=== PATIENT | female | born 1955 | race Caucasian/White ===

== ENCOUNTER → 2020-03-12 | Outpatient (CLI) | payer MEDICARE ==
[~2020-03-12] MED LIST: BENICAR20 MG PO; BENTYL10 MG PO; CYMBALTA60 MG PO; DEXILANT60 M1 PO; FENOFIBRATE160 MG PO; GLYBURIDE5 MG PO; JANUVIA100 MG PO; LAMICTAL200 MG PO; LANTUS100 U/ML SC; LEVOTHYROXIN0.112 MG PO; METFORMIN500 MG PO; METOPROLOL SR50 MG PO; SEROQUEL100 MG PO; SIMVASTATIN40 MG PO; VITAMIN D50000 I2 PO; WARFARIN SOD5 MG PO
[2020-03-12 15:36] LABS: ALBUMIN 3.1 gm/dl (3.1-4.5); BUN 22 mg/dl (7-24); CHLORIDE 102 mmol/L (98-107); CREATININE 1.01 mg/dL (0.55-1.02); POTASSIUM 3.7 mmol/L (3.5-5.1); SODIUM 138 mmol/L (136-145)
[2020-03-12 16:24] LABS: BILIRUBIN NEGATIVE (NEGATIVE); CLARITY CLEAR (CLEAR); COLOR YELLOW (YELLOW); GLUCOSE NEGATIVE (NEGATIVE); KETONE NEGATIVE (NEGATIVE); SPECIFIC GRAVITY 1.015 (1.005-1.030)
[2020-03-12 16:25] LABS: BLOOD 2+ (NEGATIVE); LEUKO ESTERASE 1+ (NEGATIVE); NITRITE NEGATIVE (NEGATIVE); PH 6.5 (5.0-9.0)
[2020-03-12 16:31] LABS: BACTERIA TRACE; EPITHELIAL CELLS 0-2
== END | disposition home or self-care (01) ==
LOC: LAB 14:15
PROVIDERS: Internal Medicine Nephrology
DX: E83.42 Hypomagnesemia (principal); E11.9 Type 2 diabetes mellitus without complications

== ENCOUNTER → 2020-03-17 | Outpatient (CLI) | payer MEDICARE | END | disposition home or self-care (01) | LOC: NM 03-14 10:00 | DX: E21.0 Primary hyperparathyroidism (principal) ==

== ENCOUNTER → 2020-05-13 | Outpatient (CLI) | payer MEDICARE, OTHER ==
[2020-05-13 16:01] LABS: ALBUMIN 3.1 gm/dl (3.1-4.5); BUN 16 mg/dl (7-24); CHLORIDE 102 mmol/L (98-107); CREATININE 1.04 mg/dL (0.55-1.02); POTASSIUM 4.3 mmol/L (3.5-5.1); SODIUM 137 mmol/L (136-145)
== END | disposition home or self-care (01) ==
LOC: LAB 15:07
PROVIDERS: Internal Medicine Nephrology
DX: E83.42 Hypomagnesemia (principal)

== ENCOUNTER → 2020-06-02 | Outpatient (CLI) | payer MEDICARE | END | disposition home or self-care (01) | LOC: LAB 15:06 | DX: E83.42 Hypomagnesemia (principal) ==

== ENCOUNTER → 2020-06-23 | Outpatient (CLI) | payer MEDICARE | END | disposition home or self-care (01) | LOC: LAB 14:43 | PROVIDERS: ATTEND Internal Medicine Nephrology | DX: E83.42 Hypomagnesemia (principal) ==

== ENCOUNTER → 2020-07-16 | Outpatient (CLI) | payer MEDICARE ==
[2020-07-16 16:20] LABS: ALBUMIN 3.3 gm/dl (3.1-4.5); BUN 24 mg/dl (7-24); CHLORIDE 103 mmol/L (98-107); CREATININE 1.02 mg/dL (0.55-1.02); SODIUM 134 mmol/L (136-145)
== END | disposition home or self-care (01) ==
LOC: LAB 14:59
PROVIDERS: ATTEND Internal Medicine Nephrology
DX: E83.42 Hypomagnesemia (principal)

== ENCOUNTER → 2020-08-01 | Outpatient (CLI) | payer MEDICARE | END | disposition home or self-care (01) | LOC: RAD 15:16 | PROVIDERS: ATTEND Nurse Practitioner Family | DX: R27.0 Ataxia, unspecified (principal); R06.00 Dyspnea, unspecified; M25.48 Effusion, other site; R09.02 Hypoxemia ==

== ENCOUNTER → 2020-08-07 | Outpatient (CLI) | payer MEDICARE ==
[2020-08-07 14:52] LABS: ALBUMIN 3.3 gm/dl (3.1-4.5); BUN 22 mg/dl (7-24); CHLORIDE 102 mmol/L (98-107); CREATININE 1.08 mg/dL (0.55-1.02); POTASSIUM 4.4 mmol/L (3.5-5.1); SODIUM 138 mmol/L (136-145)
== END | disposition home or self-care (01) ==
LOC: LAB 05:04
PROVIDERS: ATTEND Internal Medicine Nephrology
DX: E83.42 Hypomagnesemia (principal)

== ENCOUNTER → 2020-08-11 | Outpatient (CLI) | payer MEDICARE ==
[2020-08-11 16:13] LABS: ALBUMIN 3.2 gm/dl (3.1-4.5); CREATININE 1.27 mg/dL (0.55-1.02); POTASSIUM 4.1 mmol/L (3.5-5.1)
== END | disposition home or self-care (01) ==
LOC: LAB 00:59
PROVIDERS: ATTEND Internal Medicine Nephrology
DX: E83.42 Hypomagnesemia (principal)

== ENCOUNTER 2020-09-09 14:42 | Emergency (ER) | payer MEDICARE ==
[~2020-09-09] VITALS: Wt 108.0 kg
[2020-09-09 14:49] VITALS: BP 107/77
== END 2020-09-09 16:50 | disposition home or self-care (01) ==
LOC: ED 14:42
DX: S79.912A Unspecified injury of left hip, initial encounter (principal); E11.9 Type 2 diabetes mellitus without complications; I10 Essential (primary) hypertension; F31.9 Bipolar disorder, unspecified; F17.200 Nicotine dependence, unspecified, uncomplicated; Z88.8 Allergy status to other drugs, medicaments and biological substances; Z79.01 Long term (current) use of anticoagulants; Z79.84 Long term (current) use of oral hypoglycemic drugs; Z79.2 Long term (current) use of antibiotics; W19.XXXA Unspecified fall, initial encounter; Y93.89 Activity, other specified; Y92.89 Other specified places as the place of occurrence of the external cause; Y99.8 Other external cause status

== ENCOUNTER → 2020-09-09 | Outpatient (CLI) | payer MEDICARE | END | disposition home or self-care (01) | LOC: LAB 00:21 | PROVIDERS: ATTEND Internal Medicine Nephrology | DX: E83.42 Hypomagnesemia (principal); R73.03 Prediabetes ==

== ENCOUNTER → 2020-11-03 | Outpatient (CLI) | payer MEDICARE ==
[~2020-11-03] MED LIST changes: +ATIVAN0.5 MG PO; -BENTYL10 MG PO; +Coumadin10 MG PO; +DICYCLOMINE HCL10 MG PO; +DILTIAZEM CD240 MG PO; +GLUCOPHAGE500 M1 PO; +Ipratropium Brom3 ML NEB; +JANTOVEN10 MG PO; +JANTOVEN4 M1 PO; +LISINOPRIL5 MG PO; -METFORMIN500 MG PO; -METOPROLOL SR50 MG PO; +METOPROLOL SUC100 M2 PO; +OMEPRAZOLE40 MG PO; +OXYGEN NAS; -SIMVASTATIN40 MG PO; -VITAMIN D50000 I2 PO; +Vitamin D2 PO; +WARFARIN PO; +ZOCOR20 MG PO
== END | disposition home or self-care (01) ==
LOC: PICC 00:31
PROVIDERS: ATTEND Internal Medicine Nephrology
DX: Z45.2 Encounter for adjustment and management of vascular access device (principal); E11.9 Type 2 diabetes mellitus without complications; I10 Essential (primary) hypertension; E03.9 Hypothyroidism, unspecified; E78.00 Pure hypercholesterolemia, unspecified; F31.9 Bipolar disorder, unspecified; Z87.891 Personal history of nicotine dependence

== ENCOUNTER 2020-11-19 13:14 | Inpatient (IN) | payer MEDICARE ==
[~2020-11-19] VITALS: Ht 178 cm; Wt 105.9 kg
[~2020-11-19 13:14] MED LIST changes: -ATIVAN0.5 MG PO; -Coumadin10 MG PO; -DILTIAZEM CD240 MG PO; -Ipratropium Brom3 ML NEB; -JANTOVEN10 MG PO; -JANTOVEN4 M1 PO; -LISINOPRIL5 MG PO; -OMEPRAZOLE40 MG PO; -OXYGEN NAS; -WARFARIN PO
[2020-11-19 13:21] VITALS: BP 118/92
[2020-11-19 13:47] LABS: BASO % 0.7 % (0.0-1.0); EOS # 0.1 10*3/uL (0.0-0.4); EOS % 0.9 % (1.0-4.0); HEMATOCRIT 37.3 % (37.0-47.0); LYMPH # 1.2 10*3/uL (1.3-4.4); LYMPH % 20.8 % (27.0-41.0); MEAN CELL VOLUME 76.3 fl (81.0-99.0); MEAN CORPUSCULAR HGB 21.5 pg (27.0-31.0); MEAN CORPUSCULAR HGB CONC 28.2 g/dl (33.0-37.0); MONO # 0.3 10*3/uL (0.1-1.0); MONO % 5.9 % (3.0-9.0); NEUT % 71.5 % (47.0-73.0); PLATELET COUNT AUTOMATED 278 10*3/uL (130-400); RED BLOOD COUNT 4.89 10*6/uL (4.10-5.10); RED CELL DISTRI WIDTH 21.2 % (0-14.5); WHITE BLOOD COUNT 5.6 10*3/uL (4.8-10.8)
[2020-11-19 14:03] LABS: ALBUMIN 2.7 gm/dl (3.1-4.5); ALKALINE PHOSPHATASE 109 U/L (45-117); BUN 30 mg/dl (7-24); CHLORIDE 102 mmol/L (98-107); CREATININE 1.34 mg/dL (0.55-1.02); LIPASE 140 U/L (73-393); POTASSIUM 3.8 mmol/L (3.5-5.1); SGOT/AST 15 IU/L (3-35); SGPT/ALT 14 U/L (12-78); SODIUM 138 mmol/L (136-145); TOTAL PROTEIN 6.6 gm/dL (6.4-8.2)
[2020-11-19 14:04] LABS: INTERNATIONAL NORM RATIO 2.8 (2.0-3.5)
[2020-11-19 14:13] LABS: TROPONIN I < 0.015 ng/ml (<0.045)
[2020-11-19 16:00] VITALS: BP 128/69
[2020-11-19] MEDS ORDERED: WARFARIN PO (16:51)
[2020-11-19 20:00] VITALS: BP 156/99
[2020-11-19] MEDS ORDERED: LISINOPRIL5 MG PO (22:17)
[2020-11-19] MEDS ORDERED: JANTOVEN4 M1 PO (22:20)
[2020-11-19] MEDS ORDERED: JANTOVEN10 MG PO (22:22)
[2020-11-19] MEDS ORDERED: OMEPRAZOLE40 MG PO (22:27)
[2020-11-19] MEDS ORDERED: DILTIAZEM CD240 MG PO (22:52)
[2020-11-19] MEDS ORDERED: ATIVAN0.5 MG PO (23:10)
[2020-11-20] VITALS: BP 155/84
[2020-11-20 06:09] LABS: BASO # 0.1 10*3/uL (0.0-0.1); BASO % 0.9 % (0.0-1.0); EOS # 0.1 10*3/uL (0.0-0.4); EOS % 1.8 % (1.0-4.0); HEMATOCRIT 34.9 % (37.0-47.0); LYMPH # 1.3 10*3/uL (1.3-4.4); LYMPH % 22.9 % (27.0-41.0); MEAN CORPUSCULAR HGB 21.8 pg (27.0-31.0); MEAN CORPUSCULAR HGB CONC 28.7 g/dl (33.0-37.0); MEAN PLATELET VOLUME 10.2 fl (9.6-12.3); MONO # 0.4 10*3/uL (0.1-1.0); MONO % 7.2 % (3.0-9.0); NEUT # 3.7 10*3/uL (2.3-7.9); NUCLEATED RED BLOOD CELL 0.4 % (0.0-0.0); PLATELET COUNT AUTOMATED 236 10*3/uL (130-400); RED BLOOD COUNT 4.59 10*6/uL (4.10-5.10); RED CELL DISTRI WIDTH 21.1 % (0-14.5); RETICULOCYTE % 1.96 % (0.50-2.50); WHITE BLOOD COUNT 5.6 10*3/uL (4.8-10.8)
[2020-11-20 06:33] LABS: ALBUMIN 2.9 gm/dl (3.1-4.5); BUN 24 mg/dl (7-24); CHLORIDE 104 mmol/L (98-107); POTASSIUM 3.6 mmol/L (3.5-5.1); SODIUM 139 mmol/L (136-145)
[2020-11-20 06:46] LABS: ALKALINE PHOSPHATASE 106 U/L (45-117); CHOLESTEROL 78 mg/dL (<200); CREATININE 1.05 mg/dL (0.55-1.02); FREE T4 1.05 ng/dl (0.76-1.46); HDL CHOLESTEROL 36 mg/dl (40-60); IRON 19 ug/dL (50-170); LDL CHOLESTEROL 24 mg/dL (9-159); SGOT/AST 17 IU/L (3-35); SGPT/ALT 13 U/L (12-78); TOTAL IRON BINDING CAPACITY 421 ug/dl (250-450); TOTAL PROTEIN 6.5 gm/dL (6.4-8.2); TRIGLYCERIDES 89 mg/dl (<150); VLDL CHOLESTEROL 18 mg/dL (6-40)
[2020-11-20 07:00] LABS: INTERNATIONAL NORM RATIO 2.3 (2.0-3.5)
[2020-11-20 07:37] LABS: VITAMIN D, 25-HYDROXY 59.5 ng/mL (30-100)
[2020-11-20 07:38] LABS: FERRITIN 38.9 ng/mL (10.0-291.0)
[2020-11-20 08:00] VITALS: BP 144/78
[2020-11-20 12:00] VITALS: BP 136/72
[2020-11-20 16:00] VITALS: BP 119/73
[2020-11-20 20:00] VITALS: BP 148/96
[2020-11-21] VITALS: BP 148/90
[2020-11-21 06:10] LABS: BASO # 0.1 10*3/uL (0.0-0.1); BASO % 0.8 % (0.0-1.0); EOS # 0.1 10*3/uL (0.0-0.4); EOS % 1.9 % (1.0-4.0); HEMATOCRIT 36.6 % (37.0-47.0); LYMPH # 1.3 10*3/uL (1.3-4.4); MEAN CELL VOLUME 75.8 fl (81.0-99.0); MEAN CORPUSCULAR HGB 21.3 pg (27.0-31.0); MEAN CORPUSCULAR HGB CONC 28.1 g/dl (33.0-37.0); MEAN PLATELET VOLUME 10.3 fl (9.6-12.3); MONO # 0.4 10*3/uL (0.1-1.0); MONO % 6.9 % (3.0-9.0); NEUT # 4.4 10*3/uL (2.3-7.9); NEUT % 69.1 % (47.0-73.0); PLATELET COUNT AUTOMATED 246 10*3/uL (130-400); RED BLOOD COUNT 4.83 10*6/uL (4.10-5.10); RED CELL DISTRI WIDTH 21.3 % (0-14.5); WHITE BLOOD COUNT 6.4 10*3/uL (4.8-10.8)
[2020-11-21 06:21] LABS: BUN 21 mg/dl (7-24); CHLORIDE 105 mmol/L (98-107); CREATININE 0.98 mg/dL (0.55-1.02); POTASSIUM 4.2 mmol/L (3.5-5.1); SODIUM 141 mmol/L (136-145)
[2020-11-21 08:00] VITALS: BP 142/91
[2020-11-21 12:00] VITALS: BP 120/101
== END 2020-11-21 14:00 | disposition home or self-care (01) | DRG 682 ==
LOC: ED 13:14 → EDHOLD 15:12 → 4E 15:12
PROVIDERS: Emergency Medicine; Internal Medicine; Registered Nurse; ADMIT Internal Medicine; ATTEND Internal Medicine
DX: N17.0 Acute kidney failure with tubular necrosis (principal); E43 Unspecified severe protein-calorie malnutrition; D68.69 Other thrombophilia; I48.19 Other persistent atrial fibrillation; E87.2 Acidosis; F41.1 Generalized anxiety disorder; E83.42 Hypomagnesemia; E11.22 Type 2 diabetes mellitus with diabetic chronic kidney disease; N18.31 Chronic kidney disease, stage 3a; E11.65 Type 2 diabetes mellitus with hyperglycemia; E03.9 Hypothyroidism, unspecified; Z96.643 Presence of artificial hip joint, bilateral; D50.9 Iron deficiency anemia, unspecified; F17.210 Nicotine dependence, cigarettes, uncomplicated; E78.2 Mixed hyperlipidemia; K21.9 Gastro-esophageal reflux disease without esophagitis; E66.9 Obesity, unspecified; Z88.1 Allergy status to other antibiotic agents; Z90.710 Acquired absence of both cervix and uterus; Z80.1 Family history of malignant neoplasm of trachea, bronchus and lung; Z88.0 Allergy status to penicillin; Z88.8 Allergy status to other drugs, medicaments and biological substances; Z68.38 Body mass index [BMI] 38.0-38.9, adult

== ENCOUNTER 2020-12-12 09:49 | Inpatient (IN) | payer MEDICARE ==
[~2020-12-12] VITALS: Ht 177.8 cm; Wt 118.9 kg
[2020-12-12] VITALS (7 sets, daily range): BP systolic 89–133; BP diastolic 54–89
[~2020-12-12 09:49] MED LIST changes: +ATIVAN0.5 MG PO; +DILTIAZEM CD240 MG PO; +JANTOVEN10 MG PO; +JANTOVEN4 M1 PO; +LISINOPRIL5 MG PO; +OMEPRAZOLE40 MG PO; +WARFARIN PO
[2020-12-12 10:44] LABS: BASO % 0.7 % (0.0-1.0); EOS # 0.1 10*3/uL (0.0-0.4); EOS % 0.9 % (1.0-4.0); HEMATOCRIT 34.4 % (37.0-47.0); LYMPH # 0.7 10*3/uL (1.3-4.4); LYMPH % 12.2 % (27.0-41.0); MEAN CELL VOLUME 77.5 fl (81.0-99.0); MEAN CORPUSCULAR HGB 21.6 pg (27.0-31.0); MEAN CORPUSCULAR HGB CONC 27.9 g/dl (33.0-37.0); MEAN PLATELET VOLUME 10.1 fl (9.6-12.3); MONO # 0.4 10*3/uL (0.1-1.0); NEUT # 4.4 10*3/uL (2.3-7.9); NEUT % 78.7 % (47.0-73.0); NUCLEATED RED BLOOD CELL 0.7 % (0.0-0.0); PLATELET COUNT AUTOMATED 217 10*3/uL (130-400); RED BLOOD COUNT 4.44 10*6/uL (4.10-5.10); RED CELL DISTRI WIDTH 22.1 % (0-14.5); WHITE BLOOD COUNT 5.6 10*3/uL (4.8-10.8)
[2020-12-12 10:56] LABS: ACT PARTIAL THROMBO TIME 33.3 SECONDS (20.0-32.1); INTERNATIONAL NORM RATIO 3.8 (2.0-3.5)
[2020-12-12 11:02] LABS: BUN 32 mg/dl (7-24); CHLORIDE 107 mmol/L (98-107); CREATININE 1.58 mg/dL (0.55-1.02); POTASSIUM 4.9 mmol/L (3.5-5.1); SODIUM 141 mmol/L (136-145)
[2020-12-12 11:06] LABS: TROPONIN I < 0.015 ng/ml (<0.045)
[2020-12-12 12:04] LABS: ABG BASE EXCESS -3.8 mmol/L (-2.0-2.0); ARTERIAL BLOOD GAS PH 7.311 (7.35-7.45); ARTERIAL BLOOD GAS PO2 67.9 (80-90)
[2020-12-12 14:47] LABS: ALBUMIN 2.8 gm/dl (3.1-4.5); BILIRUBIN, DIRECT 0.5 mg/dL (0.0-0.2); TOTAL PROTEIN 6.5 gm/dL (6.4-8.2)
[2020-12-13] VITALS: BP 137/82
[2020-12-13 00:21] LABS: BILIRUBIN Negative (Negative); BLOOD Negative (Negative); CLARITY Turbid (Clear); COLOR Dark Yellow (Yellow); GLUCOSE Negative (Negative); KETONE Trace (Negative); LEUKO ESTERASE Trace (Negative); NITRITE Negative (Negative); SPECIFIC GRAVITY 1.025 (1.001-1.030)
[2020-12-13 00:30] LABS: BACTERIA 2+
[2020-12-13 06:15] LABS: BASO # 0.1 10*3/uL (0.0-0.1); BASO % 0.9 % (0.0-1.0); EOS # 0.2 10*3/uL (0.0-0.4); EOS % 2.5 % (1.0-4.0); HEMATOCRIT 34.4 % (37.0-47.0); LYMPH # 1.2 10*3/uL (1.3-4.4); LYMPH % 18.7 % (27.0-41.0); MEAN CELL VOLUME 76.6 fl (81.0-99.0); MEAN CORPUSCULAR HGB 21.4 pg (27.0-31.0); MEAN CORPUSCULAR HGB CONC 27.9 g/dl (33.0-37.0); MEAN PLATELET VOLUME 10.8 fl (9.6-12.3); MONO # 0.5 10*3/uL (0.1-1.0); MONO % 7.5 % (3.0-9.0); NEUT # 4.6 10*3/uL (2.3-7.9); NEUT % 69.9 % (47.0-73.0); NUCLEATED RED BLOOD CELL 0.5 % (0.0-0.0); PLATELET COUNT AUTOMATED 243 10*3/uL (130-400); RED BLOOD COUNT 4.49 10*6/uL (4.10-5.10); RED CELL DISTRI WIDTH 21.7 % (0-14.5); WHITE BLOOD COUNT 6.5 10*3/uL (4.8-10.8)
[2020-12-13 06:22] LABS: ALBUMIN 2.9 gm/dl (3.1-4.5); CREATININE 1.21 mg/dL (0.55-1.02); POTASSIUM 4.4 mmol/L (3.5-5.1); TOTAL PROTEIN 6.6 gm/dL (6.4-8.2)
[2020-12-13 08:00] VITALS: BP 148/87
[2020-12-13 12:00] VITALS: BP 133/51
[2020-12-13 16:00] VITALS: BP 133/95
[2020-12-13 20:00] VITALS: BP 150/101
[2020-12-14] VITALS: BP 140/90
[2020-12-14 06:02] LABS: ALBUMIN 2.7 gm/dl (3.1-4.5); BUN 26 mg/dl (7-24); CHLORIDE 105 mmol/L (98-107); CREATININE 1.01 mg/dL (0.55-1.02); POTASSIUM 4.2 mmol/L (3.5-5.1); SODIUM 139 mmol/L (136-145)
[2020-12-14 06:08] LABS: INTERNATIONAL NORM RATIO 2.3 (2.0-3.5)
[2020-12-14 08:00] VITALS: BP 152/90
[2020-12-14 08:02] LABS: ABG BASE EXCESS -1.2 mmol/L (-2.0-2.0); ARTERIAL BLOOD GAS PH 7.332 (7.35-7.45); ARTERIAL BLOOD GAS PO2 73.1 (80-90)
[2020-12-14 12:00] VITALS: BP 139/86
[2020-12-14 16:01] VITALS: BP 150/97
[2020-12-14 19:14] LABS: ABG BASE EXCESS 6.1 mmol/L (-2.0-2.0); ARTERIAL BLOOD GAS PH 7.402 (7.35-7.45); ARTERIAL BLOOD GAS PO2 75.4 (80-90)
[2020-12-14 20:00] VITALS: BP 121/81
[2020-12-15 06:26] LABS: BUN 23 mg/dl (7-24); CHLORIDE 104 mmol/L (98-107); CREATININE 0.91 mg/dL (0.55-1.02); SODIUM 139 mmol/L (136-145)
[2020-12-15 08:00] VITALS: BP 138/77
[2020-12-15 12:00] VITALS: BP 114/61
[2020-12-15 15:55] VITALS: BP 156/87
[2020-12-15 20:00] VITALS: BP 147/80
[2020-12-16] VITALS: BP 124/77
[2020-12-16 08:00] VITALS: BP 158/98
[2020-12-16 12:00] VITALS: BP 160/89
[2020-12-16] MEDS ORDERED: ATIVAN0.5 MG PO (13:10)
[2020-12-16] MEDS ORDERED: JANTOVEN4 M1 PO (13:10)
[2020-12-16] MEDS ORDERED: Ipratropium Brom3 ML NEB (13:10)
[2020-12-16] MEDS ORDERED: Coumadin10 MG PO (13:10)
[2020-12-16] MEDS ORDERED: OXYGEN NAS (14:06)
== END 2020-12-16 16:08 | DRG 682 ==
LOC: ED 09:49 → EDHOLD 12:44 → 4E 12:44
PROVIDERS: Emergency Medicine; Internal Medicine; Internal Medicine Critical Care Medicine; ADMIT Emergency Medicine; ATTEND Emergency Medicine
PROC: 5A0935A Assistance with Respiratory Ventilation, Less than 24 Consecutive Hours, High Flow/Velocity Cannula (ICD-10-PCS; principal; 2020-12-15)
DX: N17.0 Acute kidney failure with tubular necrosis (principal); J96.01 Acute respiratory failure with hypoxia; F33.9 Major depressive disorder, recurrent, unspecified; E11.65 Type 2 diabetes mellitus with hyperglycemia; E03.9 Hypothyroidism, unspecified; N18.31 Chronic kidney disease, stage 3a; D50.9 Iron deficiency anemia, unspecified; K21.9 Gastro-esophageal reflux disease without esophagitis; E83.42 Hypomagnesemia; F41.1 Generalized anxiety disorder; E66.9 Obesity, unspecified; Z96.643 Presence of artificial hip joint, bilateral; Z20.822 Contact with and (suspected) exposure to COVID-19; E11.22 Type 2 diabetes mellitus with diabetic chronic kidney disease; I48.0 Paroxysmal atrial fibrillation; E78.2 Mixed hyperlipidemia; I95.9 Hypotension, unspecified; E86.9 Volume depletion, unspecified; Z68.37 Body mass index [BMI] 37.0-37.9, adult; Z88.1 Allergy status to other antibiotic agents; Z88.0 Allergy status to penicillin; Z88.8 Allergy status to other drugs, medicaments and biological substances; Z90.710 Acquired absence of both cervix and uterus; Z80.1 Family history of malignant neoplasm of trachea, bronchus and lung

== ENCOUNTER → 2021-02-25 | Outpatient (CLI) | payer MEDICARE ==
[~2021-02-25] MED LIST changes: +AMILORIDE5 MG PO; +Coumadin10 MG PO; +GLUCOPHAGE1000 MG PO; +GOOD SENSE ACID20 MG PO; +Ipratropium Brom3 ML NEB; +K-TAB20 MEQ PO; +OXYGEN NAS; +VITAMIN C500 M8 PO; +VITAMIN D3250 MC1 PO
[2021-02-25 12:59] LABS: BASO # 0.1 10*3/uL (0.0-0.1); BASO % 0.5 % (0.0-1.0); EOS # 0.2 10*3/uL (0.0-0.4); EOS % 1.5 % (1.0-4.0); HEMATOCRIT 38.5 % (37.0-47.0); LYMPH # 1.2 10*3/uL (1.3-4.4); LYMPH % 10.9 % (27.0-41.0); MEAN CELL VOLUME 76.7 fl (81.0-99.0); MEAN CORPUSCULAR HGB 21.5 pg (27.0-31.0); MEAN CORPUSCULAR HGB CONC 28.1 g/dl (33.0-37.0); MEAN PLATELET VOLUME 9.3 fl (9.6-12.3); MONO # 0.7 10*3/uL (0.1-1.0); MONO % 6.4 % (3.0-9.0); NEUT # 8.5 10*3/uL (2.3-7.9); NEUT % 80.3 % (47.0-73.0); PLATELET COUNT AUTOMATED 273 10*3/uL (130-400); RED BLOOD COUNT 5.02 10*6/uL (4.10-5.10); RED CELL DISTRI WIDTH 20.8 % (0-14.5); WHITE BLOOD COUNT 10.6 10*3/uL (4.8-10.8)
[2021-02-25 13:13] LABS: BUN 25 mg/dl (7-24); CHLORIDE 105 mmol/L (98-107); CREATININE 1.06 mg/dL (0.55-1.02); CREATININE 1.09 mg/dL (0.55-1.02); POTASSIUM 4.7 mmol/L (3.5-5.1); SODIUM 136 mmol/L (136-145)
[2021-02-25 13:18] LABS: IRON 17 ug/dL (50-170)
[2021-02-25 13:26] LABS: TOTAL IRON BINDING CAPACITY 489 ug/dl (250-450)
[2021-03-03 00:06] LABS: METANEPHRINE, PLASMA 31.5 pg/mL (0.0-88.0); NORMETANEPHRINE, PLASMA 596.4 pg/mL (0.0-191.8)
== END | disposition home or self-care (01) ==
LOC: LAB 00:23
PROVIDERS: Radiology Diagnostic Radiology; ATTEND Internal Medicine Nephrology
DX: K31.89 Other diseases of stomach and duodenum (principal); K90.9 Intestinal malabsorption, unspecified; R19.7 Diarrhea, unspecified; D72.820 Lymphocytosis (symptomatic); R63.4 Abnormal weight loss; I70.0 Atherosclerosis of aorta; Z96.643 Presence of artificial hip joint, bilateral

== ENCOUNTER 2021-03-16 11:13 | Emergency (ER) | payer MEDICARE ==
[~2021-03-16] VITALS: Wt 97.1 kg
[2021-03-16 11:48] LABS: BILIRUBIN Negative (Negative); BLOOD Negative (Negative); CLARITY Clear (Clear); COLOR Yellow (Yellow); GLUCOSE Negative (Negative); KETONE Negative (Negative); LEUKO ESTERASE Negative (Negative); NITRITE Negative (Negative); PH 5.5 (4.5-8.0); UROBILINOGEN 0.2 E.U./dl (0.0-1.0)
[2021-03-16 11:58] LABS: BACTERIA TRACE; HYALINE CAST 0-2; RBC 0-2 rbc/hpf (0-2); WBC 0-2 wbc/hpf (0-5)
[2021-03-16 12:05] LABS: HEMATOCRIT 44.1 % (37.0-47.0); MEAN CELL VOLUME 80.2 fl (81.0-99.0); MEAN CORPUSCULAR HGB 22.4 pg (27.0-31.0); MEAN CORPUSCULAR HGB CONC 27.9 g/dl (33.0-37.0); NUCLEATED RED BLOOD CELL 0.4 % (0.0-0.0); PLATELET COUNT AUTOMATED 259 10*3/uL (130-400); RED CELL DISTRI WIDTH 24.5 % (0-14.5); WHITE BLOOD COUNT 8.3 10*3/uL (4.8-10.8)
[2021-03-16 12:30] LABS: TOTAL CELLS COUNTED 100 #CELLS
[2021-03-16 12:31] LABS: MICROCYTOSIS SLIGHT; PLATELET SUFFICIENCY NORMAL (NORMAL); POLYCHROMASIA SLIGHT
[2021-03-16 12:42] LABS: ALBUMIN 2.9 gm/dl (3.1-4.5); ALKALINE PHOSPHATASE 176 U/L (45-117); BUN 21 mg/dl (7-24); CHLORIDE 106 mmol/L (98-107); CREATININE 1.15 mg/dL (0.55-1.02); POTASSIUM 4.8 mmol/L (3.5-5.1); SGOT/AST 15 IU/L (3-35); SGPT/ALT 15 U/L (12-78); SODIUM 133 mmol/L (136-145); TOTAL PROTEIN 7.2 gm/dL (6.4-8.2); TROPONIN I < 0.015 ng/ml (<0.045)
[2021-03-16 16:30] VITALS: BP 98/64
== END 2021-03-16 16:56 | disposition left against medical advice (07) ==
LOC: ED 11:13
PROVIDERS: Physician Assistant
DX: I48.20 Chronic atrial fibrillation, unspecified (principal); R09.02 Hypoxemia; I10 Essential (primary) hypertension; E11.9 Type 2 diabetes mellitus without complications; E03.9 Hypothyroidism, unspecified; I48.91 Unspecified atrial fibrillation; Z88.0 Allergy status to penicillin; Z88.8 Allergy status to other drugs, medicaments and biological substances; Z79.899 Other long term (current) drug therapy; Z90.711 Acquired absence of uterus with remaining cervical stump; Z98.890 Other specified postprocedural states; Z96.643 Presence of artificial hip joint, bilateral

== ENCOUNTER → 2021-05-22 | Outpatient (CLI) | payer MEDICARE ==
[2021-05-22 12:59] VITALS: BP 127/81
== END | disposition home or self-care (01) ==
LOC: PHLEB 00:30
PROVIDERS: ATTEND Internal Medicine Hematology & Oncology
DX: D75.1 Secondary polycythemia (principal); E83.42 Hypomagnesemia; E85.9 Amyloidosis, unspecified

== ENCOUNTER → 2021-07-21 | Outpatient (CLI) | payer MEDICARE ==
[2021-07-21 11:38] VITALS: BP 109/68
[2021-07-21 12:10] VITALS: BP 106/58
== END | disposition home or self-care (01) ==
LOC: PHLEB 00:38
PROVIDERS: ATTEND Internal Medicine Hematology & Oncology
DX: E83.42 Hypomagnesemia (principal); E85.9 Amyloidosis, unspecified; D75.1 Secondary polycythemia

== ENCOUNTER → 2021-08-19 | Outpatient (CLI) | payer MEDICARE ==
[2021-08-19 11:27] VITALS: BP 143/84
[2021-08-19 11:29] VITALS: BP 129/71
== END | disposition home or self-care (01) ==
LOC: PHLEB 00:33
PROVIDERS: ATTEND Internal Medicine Hematology & Oncology
DX: D75.1 Secondary polycythemia (principal); E83.42 Hypomagnesemia; E85.9 Amyloidosis, unspecified

== ENCOUNTER → 2021-08-26 | Outpatient (CLI) | payer MEDICARE ==
[2021-08-26 15:16] LABS: PTH INTACT 128.4 pg/mL (18.5-88.0); VITAMIN D, 25-HYDROXY 35.4 ng/mL (30-100)
[2021-08-27 08:07] LABS: TOTAL PROTEIN, SERUM 7.2 g/dL (6.0-8.5)
[2021-08-27 14:08] LABS: ALBUMIN 3.6 g/dL (2.9-4.4); ALPHA-1-GLOBULIN 0.2 g/dL (0.0-0.4); ALPHA-2-GLOBULIN 0.8 g/dL (0.4-1.0); BETA GLOBULIN 1.2 g/dL (0.7-1.3); FREE KAPPA LIGHT CHAINS 40.8 mg/L (3.3-19.4); FREE LAMBDA LIGHT CHAINS 26.2 mg/L (5.7-26.3); GAMMA GLOBULIN 1.3 g/dL (0.4-1.8); GLOBULIN, TOTAL 3.6 g/dL (2.2-3.9); KAPPA/LAMBDA RATIO 1.56 (0.26-1.65); M-SPIKE Not Observed g/dL (Not Observed)
[2021-08-28 16:08] LABS: BETA-2 MICROGLOBULIN 2.7 mg/L (0.6-2.4)
[2021-09-01 16:08] LABS: PARATHYROID-REL PEPTIDE <2.0 pmol/L (.)
== END | disposition home or self-care (01) ==
LOC: LAB 00:20
PROVIDERS: ATTEND Internal Medicine Nephrology
DX: E83.42 Hypomagnesemia (principal); R63.4 Abnormal weight loss; E83.52 Hypercalcemia; Z91.89 Other specified personal risk factors, not elsewhere classified

== ENCOUNTER → 2021-10-23 | Outpatient (CLI) | payer MEDICARE ==
[2021-10-23 10:35] VITALS: BP 125/81
[2021-10-23 11:21] VITALS: BP 148/97
== END | disposition home or self-care (01) ==
LOC: PHLEB 02:13
PROVIDERS: ATTEND Internal Medicine Hematology & Oncology
DX: R60.0 Localized edema (principal); D75.1 Secondary polycythemia; E83.42 Hypomagnesemia; E85.9 Amyloidosis, unspecified; M71.21 Synovial cyst of popliteal space [Baker], right knee

== ENCOUNTER → 2021-11-25 | Outpatient (CLI) | payer MEDICARE ==
[2021-11-25 10:10] VITALS: BP 125/67
[2021-11-25 10:42] VITALS: BP 117/59
== END | disposition home or self-care (01) ==
LOC: PHLEB 00:17
PROVIDERS: ATTEND Internal Medicine Hematology & Oncology
DX: D75.1 Secondary polycythemia (principal); E83.42 Hypomagnesemia; E85.9 Amyloidosis, unspecified

== ENCOUNTER → 2021-12-18 | Outpatient (CLI) | payer MEDICARE ==
[2021-12-18 10:45] VITALS: BP 97/59
[2021-12-18 11:05] VITALS: BP 98/62
== END | disposition home or self-care (01) ==
LOC: PHLEB 00:25
PROVIDERS: ATTEND Internal Medicine Hematology & Oncology
DX: D75.1 Secondary polycythemia (principal); E83.42 Hypomagnesemia; E85.9 Amyloidosis, unspecified

== ENCOUNTER → 2022-01-20 | Outpatient (CLI) | payer MEDICARE ==
[2022-01-20 10:40] VITALS: BP 117/75
[2022-01-20 11:03] VITALS: BP 116/66
== END | disposition home or self-care (01) ==
LOC: PHLEB 02:02 → IV THERAPY 10:30 → PHLEB 10:30 → EDSTATUS 10:30
PROVIDERS: ATTEND Internal Medicine Hematology & Oncology
DX: D75.1 Secondary polycythemia (principal); E83.42 Hypomagnesemia; E85.9 Amyloidosis, unspecified

== ENCOUNTER → 2022-02-11 | Outpatient (CLI) | payer MEDICARE ==
[2022-02-11 10:25] VITALS: BP 124/63
[2022-02-11 10:50] VITALS: BP 121/80
== END | disposition home or self-care (01) ==
LOC: PHLEB 00:10
PROVIDERS: ATTEND Internal Medicine Hematology & Oncology
DX: D75.1 Secondary polycythemia (principal); E83.42 Hypomagnesemia; E85.9 Amyloidosis, unspecified

== ENCOUNTER → 2022-02-16 | Outpatient (CLI) | payer MEDICARE | END | disposition home or self-care (01) | LOC: US 16:00 | PROVIDERS: ATTEND Nurse Practitioner Family | DX: L53.9 Erythematous condition, unspecified (principal); R60.0 Localized edema ==

== ENCOUNTER → 2022-03-22 | Outpatient (CLI) | payer MEDICARE ==
[2022-03-22 10:35] VITALS: BP 124/70
[2022-03-22 10:50] VITALS: BP 104/64
== END | disposition home or self-care (01) ==
LOC: PHLEB 04:27
PROVIDERS: ATTEND Internal Medicine Hematology & Oncology
DX: D75.1 Secondary polycythemia (principal); E83.42 Hypomagnesemia; E85.9 Amyloidosis, unspecified

== ENCOUNTER → 2022-04-21 | Outpatient (CLI) | payer MEDICARE ==
[2022-04-21 10:38] VITALS: BP 104/71
== END | disposition home or self-care (01) ==
LOC: PHLEB 00:36
PROVIDERS: ATTEND Internal Medicine Hematology & Oncology
DX: D75.1 Secondary polycythemia (principal); E83.42 Hypomagnesemia; E85.9 Amyloidosis, unspecified

== ENCOUNTER → 2022-05-19 | Outpatient (CLI) | payer MEDICARE ==
[2022-05-19 10:00] VITALS: BP 136/82
[2022-05-19 10:20] VITALS: BP 133/83
== END | disposition home or self-care (01) ==
LOC: PHLEB 00:28
PROVIDERS: ATTEND Internal Medicine Hematology & Oncology
DX: D75.1 Secondary polycythemia (principal); E83.42 Hypomagnesemia; E85.9 Amyloidosis, unspecified

== ENCOUNTER → 2022-06-11 | Outpatient (CLI) | payer MEDICARE ==
[2022-06-11 11:29] LABS: BASO # 0.1 10*3/uL (0.0-0.1); BASO % 0.8 % (0.0-1.0); EOS # 0.1 10*3/uL (0.0-0.4); EOS % 1.5 % (1.0-4.0); HEMATOCRIT 50.1 % (37.0-47.0); LYMPH % 14.1 % (27.0-41.0); MEAN CELL VOLUME 99.8 fl (81.0-99.0); MEAN CORPUSCULAR HGB 31.9 pg (27.0-31.0); MEAN CORPUSCULAR HGB CONC 31.9 g/dl (33.0-37.0); MEAN PLATELET VOLUME 11.4 fl (9.6-12.3); MONO # 0.5 10*3/uL (0.1-1.0); MONO % 7.1 % (3.0-9.0); NEUT # 5.6 10*3/uL (2.3-7.9); NEUT % 76.2 % (47.0-73.0); PLATELET COUNT AUTOMATED 153 10*3/uL (130-400); RED BLOOD COUNT 5.02 10*6/uL (4.10-5.10); RED CELL DISTRI WIDTH 13.2 % (0-14.5); WHITE BLOOD COUNT 7.4 10*3/uL (4.8-10.8)
[2022-06-11 11:50] VITALS: BP 132/93
[2022-06-11 12:15] VITALS: BP 125/85
== END ==
LOC: PHLEB 06-09 11:00
PROVIDERS: ATTEND Internal Medicine Hematology & Oncology
DX: D75.1 Secondary polycythemia (principal); E83.42 Hypomagnesemia; E85.9 Amyloidosis, unspecified

== ENCOUNTER → 2022-08-20 | Outpatient (CLI) | payer MEDICARE ==
[2022-08-20 11:00] VITALS: BP 149/98
[2022-08-20 11:24] VITALS: BP 142/88
== END | disposition home or self-care (01) ==
LOC: PHLEB 00:18
PROVIDERS: ATTEND Internal Medicine Hematology & Oncology
DX: D75.1 Secondary polycythemia (principal); E83.42 Hypomagnesemia; E85.9 Amyloidosis, unspecified

== ENCOUNTER → 2022-11-05 | Outpatient (CLI) | payer MEDICARE ==
[2022-11-05 11:00] VITALS: BP 129/98
[2022-11-05 11:27] VITALS: BP 112/81
== END | disposition home or self-care (01) ==
LOC: PHLEB 10:50
PROVIDERS: ATTEND Internal Medicine Hematology & Oncology
DX: D75.1 Secondary polycythemia (principal); E83.42 Hypomagnesemia; E85.9 Amyloidosis, unspecified

== ENCOUNTER → 2022-12-15 | Outpatient (CLI) | payer MEDICARE ==
[2022-12-15 10:55] VITALS: BP 106/75
[2022-12-15 11:20] VITALS: BP 113/80
== END | disposition home or self-care (01) ==
LOC: PHLEB 00:40
PROVIDERS: ATTEND Internal Medicine Hematology & Oncology
DX: D75.1 Secondary polycythemia (principal); E83.42 Hypomagnesemia; E85.9 Amyloidosis, unspecified; I48.91 Unspecified atrial fibrillation

== ENCOUNTER → 2023-01-11 | Outpatient (CLI) | payer MEDICARE | END | disposition home or self-care (01) | LOC: RESCLI 01:36 | PROVIDERS: ATTEND Family Medicine | DX: F32.9 Major depressive disorder, single episode, unspecified (principal); I48.0 Paroxysmal atrial fibrillation; E11.9 Type 2 diabetes mellitus without complications; E55.9 Vitamin D deficiency, unspecified; I11.0 Hypertensive heart disease with heart failure; I50.9 Heart failure, unspecified; F17.200 Nicotine dependence, unspecified, uncomplicated; K21.9 Gastro-esophageal reflux disease without esophagitis; F41.9 Anxiety disorder, unspecified; E03.9 Hypothyroidism, unspecified; I48.91 Unspecified atrial fibrillation; G89.29 Other chronic pain; K58.9 Irritable bowel syndrome, unspecified; E78.5 Hyperlipidemia, unspecified; Z88.0 Allergy status to penicillin; Z88.8 Allergy status to other drugs, medicaments and biological substances; F10.90 Alcohol use, unspecified, uncomplicated; Z98.890 Other specified postprocedural states; Z79.899 Other long term (current) drug therapy ==

== ENCOUNTER → 2023-02-11 | Outpatient (CLI) | payer MEDICARE ==
[2023-02-11 16:40] LABS: THYROID STIM HORMONE (HS) 0.44 uIU/ml (0.550-4.780)
== END | disposition home or self-care (01) ==
LOC: LAB 15:10
PROVIDERS: ATTEND Otolaryngology
DX: E03.9 Hypothyroidism, unspecified (principal); E83.51 Hypocalcemia

== ENCOUNTER 2023-02-19 19:45 | Emergency (ER) | payer MEDICARE ==
[~2023-02-19] VITALS: Ht 180.3 cm; Wt 90.7 kg
[2023-02-19 20:06] VITALS: BP 140/91
[2023-02-19] MEDS ORDERED: CEPHALEXIN500 M1 PO (20:27)
== END 2023-02-19 20:49 | disposition home or self-care (01) ==
LOC: ED 19:45
DX: L03.115 Cellulitis of right lower limb (principal); K21.9 Gastro-esophageal reflux disease without esophagitis; F31.9 Bipolar disorder, unspecified; E78.00 Pure hypercholesterolemia, unspecified; I48.91 Unspecified atrial fibrillation; E78.5 Hyperlipidemia, unspecified; I12.9 Hypertensive chronic kidney disease with stage 1 through stage 4 chronic kidney disease, or unspecified chronic kidney disease; E11.22 Type 2 diabetes mellitus with diabetic chronic kidney disease; N18.9 Chronic kidney disease, unspecified; N17.9 Acute kidney failure, unspecified; Z88.0 Allergy status to penicillin; Z88.1 Allergy status to other antibiotic agents; Z88.8 Allergy status to other drugs, medicaments and biological substances; Z90.710 Acquired absence of both cervix and uterus; Z90.89 Acquired absence of other organs; Z98.890 Other specified postprocedural states; Z72.0 Tobacco use

== ENCOUNTER → 2023-02-22 | Outpatient (CLI) | payer MEDICARE ==
[~2023-02-22] MED LIST changes: +CEPHALEXIN500 M1 PO
[2023-02-22 10:50] VITALS: BP 133/71
[2023-02-22 11:17] VITALS: BP 117/66
== END | disposition home or self-care (01) ==
LOC: PHLEB 02-18 00:48
PROVIDERS: ATTEND Internal Medicine Hematology & Oncology
DX: D75.1 Secondary polycythemia (principal); E83.42 Hypomagnesemia; E85.9 Amyloidosis, unspecified

== ENCOUNTER → 2023-04-15 | Outpatient (CLI) | payer MEDICARE ==
[2023-04-15 17:03] LABS: THYROID STIM HORMONE (HS) 2.389 uIU/ml (0.550-4.780)
== END | disposition home or self-care (01) ==
LOC: LAB 16:01
PROVIDERS: ATTEND Otolaryngology
DX: E21.3 Hyperparathyroidism, unspecified (principal); Z79.899 Other long term (current) drug therapy

== ENCOUNTER 2023-12-20 21:10 | Emergency (ER) | payer MEDICARE ==
[~2023-12-20] VITALS: Ht 177.8 cm; Wt 94.3 kg
[2023-12-20 21:29] VITALS: BP 110/90
[2023-12-20] MEDS ORDERED: SILVER NITRATE APPLICATOR 1 EACH APP T ONE (21:30)
[2023-12-20] MEDS ORDERED: Tdap Vaccine 0.5 ML SYR (Adult Vaccine) IM ONE (22:20)
== END 2023-12-20 22:46 | disposition home or self-care (01) ==
LOC: ED 21:10
DX: S81.812A Laceration without foreign body, left lower leg, initial encounter (principal); F41.9 Anxiety disorder, unspecified; E83.42 Hypomagnesemia; I95.9 Hypotension, unspecified; D64.9 Anemia, unspecified; K21.9 Gastro-esophageal reflux disease without esophagitis; E78.5 Hyperlipidemia, unspecified; E11.22 Type 2 diabetes mellitus with diabetic chronic kidney disease; I12.9 Hypertensive chronic kidney disease with stage 1 through stage 4 chronic kidney disease, or unspecified chronic kidney disease; N18.30 Chronic kidney disease, stage 3 unspecified; N17.9 Acute kidney failure, unspecified; E03.9 Hypothyroidism, unspecified; F31.9 Bipolar disorder, unspecified; I48.91 Unspecified atrial fibrillation; Z88.0 Allergy status to penicillin; Z88.1 Allergy status to other antibiotic agents; Z88.8 Allergy status to other drugs, medicaments and biological substances; Z90.710 Acquired absence of both cervix and uterus; Z90.89 Acquired absence of other organs; Z98.890 Other specified postprocedural states; Z72.0 Tobacco use; W26.8XXA Contact with other sharp object(s), not elsewhere classified, initial encounter; Y93.89 Activity, other specified; Y92.89 Other specified places as the place of occurrence of the external cause; Y99.8 Other external cause status

== ENCOUNTER → 2024-01-11 | Outpatient (CLI) | payer MEDICARE ==
[2024-01-11 16:05] LABS: URINE CREATININE RANDOM 98.12 mg/dL
== END | disposition home or self-care (01) ==
LOC: LAB 15:11
PROVIDERS: ATTEND Otolaryngology
DX: E11.9 Type 2 diabetes mellitus without complications (principal)

== ENCOUNTER → 2024-03-08 | Outpatient (CLI) | payer MEDICARE | END | disposition home or self-care (01) | LOC: RESCLI 01:44 | PROVIDERS: ATTEND Internal Medicine | DX: R60.0 Localized edema (principal); I11.0 Hypertensive heart disease with heart failure; I50.9 Heart failure, unspecified; E11.9 Type 2 diabetes mellitus without complications; E78.5 Hyperlipidemia, unspecified; K58.9 Irritable bowel syndrome, unspecified; G89.29 Other chronic pain; I48.91 Unspecified atrial fibrillation; F31.9 Bipolar disorder, unspecified; F17.200 Nicotine dependence, unspecified, uncomplicated; E03.9 Hypothyroidism, unspecified; F41.9 Anxiety disorder, unspecified; K21.9 Gastro-esophageal reflux disease without esophagitis; E55.9 Vitamin D deficiency, unspecified; Z79.899 Other long term (current) drug therapy; Z88.8 Allergy status to other drugs, medicaments and biological substances; Z98.890 Other specified postprocedural states ==

== ENCOUNTER 2024-06-18 15:25 | Emergency (ER) | payer MEDICARE ==
[~2024-06-18] VITALS: Ht 177.8 cm; Wt 94.8 kg
[2024-06-18 15:32] VITALS: BP 113/69
[2024-06-18] MEDS ORDERED: CEFUROXIME AXE500 MG PO (16:35)
[2024-06-18] MEDS ORDERED: SEPTDS PO (16:35)
== END 2024-06-18 16:40 | disposition home or self-care (01) ==
LOC: ED 15:25
DX: L03.213 Periorbital cellulitis (principal); F41.9 Anxiety disorder, unspecified; I48.91 Unspecified atrial fibrillation; F32.A Depression, unspecified; K21.9 Gastro-esophageal reflux disease without esophagitis; E78.5 Hyperlipidemia, unspecified; E83.42 Hypomagnesemia; E11.22 Type 2 diabetes mellitus with diabetic chronic kidney disease; I12.9 Hypertensive chronic kidney disease with stage 1 through stage 4 chronic kidney disease, or unspecified chronic kidney disease; N18.30 Chronic kidney disease, stage 3 unspecified; E03.9 Hypothyroidism, unspecified; D64.9 Anemia, unspecified; F31.9 Bipolar disorder, unspecified; E78.00 Pure hypercholesterolemia, unspecified; Z88.0 Allergy status to penicillin; Z88.1 Allergy status to other antibiotic agents; Z88.8 Allergy status to other drugs, medicaments and biological substances; Z90.710 Acquired absence of both cervix and uterus; Z90.89 Acquired absence of other organs; Z98.890 Other specified postprocedural states; Z72.0 Tobacco use